=== PATIENT | female | born 1965 | race Two or more races ===

== ENCOUNTER 2018-04-20 14:25 | Emergency (ER) | payer OTHER ==
[~2018-04-20] VITALS: Ht 167.6 cm; Wt 93.4 kg
[~2018-04-20 14:25] MED LIST: GLUCOPHAGE XR500 MG PO; LIPITOR20 MG; LIPITOR20 MG PO; METFORMIN; NEURONTIN300 MG PO
== END 2018-04-20 19:45 | disposition home or self-care (01) ==
LOC: ER 14:25
DX: J32.8 Other chronic sinusitis (principal); J06.9 Acute upper respiratory infection, unspecified; J11.1 Influenza due to unidentified influenza virus with other respiratory manifestations

== ENCOUNTER 2018-08-08 11:17 | Emergency (ER) | payer OTHER ==
[~2018-08-08] VITALS: Ht 167.6 cm; Wt 95.3 kg
[2018-08-08] MEDS ORDERED: COZAAR25 MG (11:52)
== END 2018-08-08 18:51 | disposition home or self-care (01) ==
LOC: ER 11:17
DX: R10.11 Right upper quadrant pain (principal); R10.13 Epigastric pain

== ENCOUNTER 2019-10-15 10:39 | Emergency (ER) | payer OTHER ==
[~2019-10-15] VITALS: Ht 167.6 cm; Wt 83.9 kg
[~2019-10-15 10:39] MED LIST changes: +COZAAR25 MG
== END 2019-10-15 13:42 | disposition home or self-care (01) ==
LOC: ER 10:39
DX: B34.9 Viral infection, unspecified (principal)

== ENCOUNTER 2024-04-18 09:02 | Emergency (ER) | payer OTHER ==
[~2024-04-18] VITALS: Ht 170.2 cm; Wt 80.7 kg
[~2024-04-18 09:02] MED LIST changes: +LIPITOR40 M1
[2024-04-18] MEDS ORDERED: KETOROLAC TROMETHAMINE 60 MG VIAL IM STA (09:58)
[2024-04-18 10:32] LABS: HEMATOCRIT 42.4 % (36.0-45.00); HEMOGLOBIN 14.8 g/dL (12.0-15.00); MEAN CELL VOLUME 85.6 fL (80.00-100.00); MEAN CORPUSCULAR HEMOGLOBIN 29.9 pg (27.00-32.0); MEAN CORPUSCULAR HGB CONC 34.9 g/dl (32.0-36.0); PLATELET COUNT 314 K/uL (150-450); RED BLOOD COUNT 4.96 M/uL (4.00-6.00); RED CELL DISTRIBUTION WIDTH 13.4 % (11.5-14.5)
[2024-04-18 10:53] LABS: CALCIUM 9.4 mg/dL (8.5-10.1); CREATININE SERUM 0.87 mg/dL (0.55-1.02); GFR 66.19; POTASSIUM 4.16 mEq/L (3.5-5.1)
[2024-04-18 11:22] LABS: PH,URINE 5.5 (5.0-8.0); URINE APPEARANCE Clear; URINE BILIRRUBIN Negative (NEGATIVE); URINE BLOOD Negative; URINE COLOR Dark Yellow; URINE GLUCOSE Negative (NEGATIVE); URINE KETONE Trace (NEGATIVE); URINE LEUKOCYTE Trace; URINE NITRATE Negative; URINE PROTEIN Trace (NEGATIVE)
[2024-04-18 11:23] LABS: URINE BACTERIA 1122.6 uL (0.0-1933); URINE EPITHELIAL CELLS 22.5 uL (0.0-38.8); URINE RBC 19.3 uL (0.0-20.8); URINE WBC 27.9 uL (0.0-23.2)
== END 2024-04-18 11:50 | disposition home or self-care (01) ==
LOC: ER 09:03
PROVIDERS: General Practice
DX: R53.81 Other malaise (principal); R42 Dizziness and giddiness; Z20.822 Contact with and (suspected) exposure to COVID-19; I10 Essential (primary) hypertension; E11.9 Type 2 diabetes mellitus without complications; Z79.84 Long term (current) use of oral hypoglycemic drugs
CPT/HCPCS: 36415; 93005; 96372; 99282; J1885